=== PATIENT | female | born 1935 | race Caucasian/White ===

== ENCOUNTER 2019-12-04 15:15 | Emergency (ER) | payer MEDICARE, SELFPAY ==
--- NOTE | ~2019-12-04 | XR_ITS ---
EXAMINATION: XR wrist RT min 3V INDICATION: Right wrist pain, initial encounter TECHNIQUE: Four views of the right wrist are obtained. COMPARISON: None available FINDINGS: There is an acute, traumatic, closed, transverse, comminuted fracture of the distal radius. Soft tissue swelling surrounds the fracture. No additional acute osseous findings are evident. 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 IMPRESSION: 1. Comminuted distal radius fracture. Reviewed, dictated and finalized at location A. [employer]
[2019-12-04 15:21] VITALS: BP 152/76; PULSE 70; RESP 20; TEMP 37.6; O2SAT 98
--- NOTE | 2019-12-04 15:48 | ED.UPPEXIN ---
HPI - Extremity Injury (Upper) General Chief Complaint: Extremity Injury, Upper Stated Complaint: R WRIST INJURY Time Seen by Provider: 12/04/19 15:39 Source: patient and RN notes reviewed Mode of arrival: ambulatory Limitations: no limitations History of Present Illness HPI narrative: Patient presents today with an injury to her right wrist. 2 hours prior to arrival she fell onto her wrist. Denies numbness or tingling. Pain slightly increases with range of motion. She has been applying ice. She has taken no medication for symptoms prior to arrival. MD complaint: injury to: right and wrist Related Data Home Medications Medication Instructions Recorded Confirmed levothyroxine 50 mcg tablet 50 mcg PO DAILY 10/15/19 12/04/19 aspirin 81 mg tablet,delayed 81 mg PO DAILY 10/16/19 12/04/19 release carbamazepine 100 mg chewable 100 mg PO .COMPLEX tablet 11/27/19 12/04/19 tablet Allergies Allergy/AdvReac Type Severity Reaction Status Date / Time No Known Allergies Allergy Verified 12/04/19 15:29 Review of Systems Review of Systems: Narrative: CONSTITUTIONAL: Denies body aches, fever, chills, or sweats. EYES: Denies visual changes, redness, or discharge. ENT: Denies rhinorrhea, congestion, sore throat, or otalgia. CARDIOVASCULAR: Denies chest pain, palpitations, or edema. RESPIRATORY: Denies cough or dyspnea. GASTROINTESTINAL: Denies abdominal pain, nausea, vomiting, or diarrhea. GENITOURINARY: Denies dysuria or hematuria. SKIN: Denies rash, itching, or wounds. MUSCULOSKELETAL: Denies back pain, or myalgia.+ Right wrist injury NEUROLOGIC: Denies headache, numbness, tingling, or weakness. PSYCH: Denies depression or anxiety. [facility] Past Medical History Medical History HTN (hypertension) Social History Social History Smoking status: Never smoker Second hand tobacco smoke exposure: No Alcohol intake: never Substance use: never Substance use type: does not use Gender identity (if verbalized by the patient): Female Comments At time of signature, I have reviewed and agree with nursing past medical, surgical, social and family history unless otherwise noted. Please see nursing chart for further information. There is no relevant family history pertinent to the presenting complaint Exam Narrative: Exam Narrative: GENERAL: Well-appearing, well-nourished, and in no acute distress. HEAD: Normocephalic, atraumatic. EYES: EOMI. No redness or drainage. Conjunctivae normal. ENT: Mucous membranes pink and moist. NECK: Normal AROM. CHEST: No respiratory distress. EXTREMITIES: Right wrist: Tenderness to the distal radius. Ecchymosis and mild edema noted. Full AROM of fingers and wrist. No snuffbox tenderness. Distal sensation intact. Capillary refill normal. Radial pulse normal. SKIN: Warm, dry, no rash. NEURO: No focal deficits. Alert and oriented x3. Gait steady. PSYCH: Normal affect. No signs of depression or anxiety. Course Vital Signs Vital signs: Vital Signs Temperature 99.6 F 12/04/19 15:21 Pulse Rate 70 12/04/19 15:21 Respiratory Rate 20 12/04/19 15:21 Blood Pressure 152/76 H 12/04/19 15:21 Pulse Oximetry 98 12/04/19 15:21 Temperature 99.6 F 12/04/19 15:21 Pulse Rate 70 12/04/19 15:21 Respiratory Rate 20 12/04/19 15:21 Blood Pressure 152/76 H 12/04/19 15:21 Pulse Oximetry 98 12/04/19 15:21 Reviewed. Pt has been instructed to follow up with her PCP regarding her elevated blood pressure today. Procedures Orthopedic Splinting/Casting Injury #1: Splinting/Casting Date: 12/04/19 Splinting/Casting Time: 15:52 Side: right Upper Extremity Injury Location: wrist OCL: volar Pre-Procedure Neuro Vascular Exam: normal Post-Procedure Neuro Vascular Exam: normal Additional Comments: completed by Tim
== END 2019-12-04 16:15 | disposition home or self-care (01) ==
PROVIDERS: Emergency Provider Nurse Practitioner; PCP Family Medicine
DX: S52.501A Unspecified fracture of the lower end of right radius, initial encounter for closed fracture (principal); W19.XXXA Unspecified fall, initial encounter; I10 Essential (primary) hypertension; E03.9 Hypothyroidism, unspecified
CPT/HCPCS: 29125; 73110; 99214; G0463

== ENCOUNTER 2021-11-16 08:08 | Emergency (ER) | payer MEDICARE, SELFPAY ==
[2021-11-16 08:15] VITALS: BP 160/80; PULSE 70; RESP 16; TEMP 36.2; O2SAT 96
--- NOTE | 2021-11-16 08:48 | ED.GENADULT ---
HPI - General Adult General Chief complaint: Unspecified Stated complaint: nerve in face hurting Time Seen by Provider: 11/16/21 08:17 Source: patient Mode of arrival: ambulatory Limitations: no limitations History of Present Illness HPI narrative: Patient is an 86-year-old female complaining of left facial pain, my neurologist told me that I have twisted nerve on the left side of her face started years ago but worse this past few weeks, was prescribed carbamazepine for it. Patient states that she has had the symptom for years and usually sees Dr. Templeton her neurologist, but he is now retired and no one to follow-up with. She denies any facial injury. Patient denies any headache, dizziness, speech or visual disturbance, focal weakness or numbness, unsteady gait, fever or chills. Related Data Home Medications Medication Instructions Recorded Confirmed aspirin 81 mg tablet,delayed 81 mg PO DAILY 10/16/19 08/11/21 release carbamazepine 11/16/21 11/16/21 levothyroxine 11/16/21 losartan 11/16/21 Allergies Allergy/AdvReac Type Severity Reaction Status Date / Time No Known Allergies Allergy Verified 11/16/21 08:24 Review of Systems Review of Systems: All systems reviewed & are unremarkable except as noted in HPI and below Constitutional: Constitutional: Denies body ache(s), Denies chills, Denies excessive sweating, Denies fatigue, Denies fever(s), Denies headache(s), Denies lethargy, Denies malaise, Denies weakness and Denies weight loss Eyes: Eyes: Denies blurry vision, Denies change in vision and Denies loss of vision ENT: Denies dizziness, Denies ear discharge, Denies headache(s), Denies lip swelling, Denies epistaxis, Denies nasal congestion, Denies neck pain, Denies throat swelling and Denies tongue swelling Cardiovascular: Cardiovascular: Denies chest pain, Denies chest pain at rest, Denies chest pain with activity, Denies diaphoresis, Denies rapid heart rate, Denies edema, Denies irregular heart rhythm, Denies lightheadedness, Denies palpitations, Denies dyspnea and Denies dyspnea on exertion Respiratory: Respiratory: Denies chest congestion, Denies cough, Denies hemoptysis, Denies dyspnea and Denies dyspnea on exertion Gastrointestinal: Gastrointestinal: Denies abdominal pain, Denies melena, Denies hematochezia, Denies diarrhea, Denies nausea, Denies vomiting and Denies hematemesis Musculoskeletal: Musculoskeletal: Denies abnormal gait, Denies deformity, Denies joint swelling, Denies limited range of motion, Denies neck pain and Denies numbness Neurologic: Denies Abnormal speech present, Denies abnormal gait, Denies confusion, Denies dizziness, Denies headache(s), Denies focal weakness, Denies loss of vision, Denies numbness, Denies Other visual disturbances, Denies Sensory deficit (Neuro) and Denies weakness Psychiatric: Psychiatric: Denies confusion, Denies depression, Denies auditory hallucinations, Denies homicidal ideation and Denies suicidal ideation Endocrine: Endocrine: Denies cold intolerance, Denies excessive sweating, Denies fatigue, Denies heat intolerance and Denies palpitations Hematologic/Lymphatic: Hematologic/Lymphatic: Denies easy bleeding and Denies easy bruising Allergic/Immunologic: Allergic/Immunologic: Denies lip swelling, Denies throat swelling and Denies tongue swelling PMFSH Past Medical History Medical History Carpal tunnel syndrome of right wrist HTN (hypertension) Hypothyroidism Social History Social History Smoking status: Never smoker Second hand tobacco smoke exposure: No Alcohol intake: never Substance use: never Substance use type: does not use Gender identity (if verbalized by the patient): Female Sexual Orientation (if Verbalized by the Patient): Straight or Heterosexual Exam Const: General: cooperative, healthy appearing, comfortable, no a
[2021-11-16] MEDS: BACLOFEN 10 MG TABLET PO (09:50)
[2021-11-16] MEDS: KETOROLAC 30 MG/ML VIAL (*BKC) 15 MG IM (09:50)
== END 2021-11-16 10:02 | disposition home or self-care (01) ==
PROVIDERS: Emergency Provider Emergency Medicine; PCP Family Medicine
DX: G50.0 Trigeminal neuralgia (principal); I10 Essential (primary) hypertension; E03.9 Hypothyroidism, unspecified
CPT/HCPCS: 96372; 99283; A9270; J1885

== ENCOUNTER 2023-10-27 17:20 | Emergency (ER) | payer MEDICARE, SELFPAY ==
--- NOTE | 2023-10-27 17:28 | ED.GENADULT ---
HPI - General Adult General Chief complaint: Skin/Abscess/Foreign Body Stated complaint: Face Numbness Source: patient, RN notes reviewed and old records reviewed Mode of arrival: ambulatory Limitations: no limitations History of Present Illness HPI narrative: 88-year-old female presents to [facility] with complaint of a weird feeling in left cheek, patient states kind of numb. Patient states started last Tuesday after working outside in the yard for 2 days. Patient denies pain patient denies rash patient denies injury. 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 complaint: Cheek numbness Onset (ago): day(s) (-) Related Data Home Medications Medication Instructions Recorded Confirmed aspirin 81 mg tablet,delayed 81 mg PO DAILY 10/16/19 10/27/23 release Allergies Allergy/AdvReac Type Severity Reaction Status Date / Time No Known Allergies Allergy Verified 10/27/23 17:30 Review of Systems Constitutional: Constitutional: Reports no additional constitutional complaints, Denies body ache(s), Denies chills, Denies fatigue, Denies fever(s) and Denies headache(s) Eyes: Eyes: Reports no additional eye complaints and Denies blurry vision ENT: Reports system reviewed and no additional complaints, except as documented, Denies vertigo, Denies dizziness, Denies ear discharge, Denies otalgia, Denies facial pain, Denies headache(s), Denies nasal congestion, Denies nasal discharge, Denies sinus pain, Denies sinus pressure and Denies sore throat Cardiovascular: Cardiovascular: Reports no additional cardiovascular complaints, Denies chest pain, Denies chest pain at rest, Denies rapid heart rate and Denies dyspnea Respiratory: Respiratory: Reports no additional respiratory complaints, Denies chest congestion, Denies cough, Denies pain on inspiration, Denies pain with cough and Denies dyspnea Gastrointestinal: Gastrointestinal: Denies abdominal pain, Denies diarrhea, Denies nausea and Denies vomiting Integumentary/Breasts: Skin/Breast: Denies rash Neurologic: Reports system reviewed and no additional complaints, except as documented, Denies vertigo, Denies dizziness and Denies headache(s) Comments: numbness in left c Endocrine: Endocrine: Denies fatigue PMFSH Past Medical History Medical History Carpal tunnel syndrome of right wrist HTN (hypertension) Hypothyroidism Social History Social History Smoking status: Never smoker Second hand tobacco smoke exposure: No Alcohol intake: never Substance use: never Substance use type: does not use Living arrangements: alone Occupation/Education: retired Gender identity (if verbalized by the patient): Female Sexual Orientation (if Verbalized by the Patient): Straight or Heterosexual Comments At the time of my signature, I reviewed and agree with the nursing past medical, surgical, social, and family history. There is no relevant family history pertinent to the patient complaint. Exam Const: General: cooperative, healthy appearing, no acute distress and well nourished Nutritional Appearance: well nourished Orientation/consciousness: patient oriented x3 Limitations: no limitations HENMT: Head: normal to inspection and normocephalic Ears: external ears normal, TM's normal bilaterally, mastoids normal and Abnormal EAC present Face/Nose/Sinus: normal facial exam Face and sinus: normal facial exam Mouth: Yes Normal oral and palatal mucosa present, Yes oropharynx normal and Yes moist mucous membranes Throat: tonsils normal, uvula midline and no uvular edema Eyes: General: appearance normal, both eyes and all related structures Sclera: sclerae normal Pupils: Equal, round and reactive pupils present Resp: Effort & Inspection: normal respiratory effort, able to
[2023-10-27 17:35] VITALS: BP 163/82; PULSE 74; RESP 16; TEMP 37.1; O2SAT 97
== END 2023-10-27 17:52 | disposition home or self-care (01) ==
PROVIDERS: Emergency Provider Registered Nurse; PCP Family Medicine
DX: R20.0 Anesthesia of skin (principal); I10 Essential (primary) hypertension; E03.9 Hypothyroidism, unspecified; Z79.82 Long term (current) use of aspirin
CPT/HCPCS: 99211; G0463

== ENCOUNTER 2025-08-26 01:54 | Emergency (ER) | payer MEDICARE, SELFPAY ==
[2025-08-26] VITALS (20 sets, daily range): BP systolic 104–154; BP diastolic 48–77; PULSE 73–84; RESP 18; TEMP 36.9; O2SAT 93–95
--- NOTE | ~2025-08-26 | XR_ITS ---
EXAMINATION: XR hand RT min 3V DATE: 08/26/2025 03:15 INDICATION: Right wrist pain and swelling. TECHNIQUE: Posteroanterior, oblique and lateral views of the right hand were obtained. COMPARISON: None. FINDINGS: Diffuse osteopenia. Old healed fracture deformity at the distal right radius with 25 degrees dorsal tilt of the distal articular surface. No acute fracture. Widening of the scapholunate interval with increased scapholunate and lunocapitate angle consistent with scapholunate ligament insufficiency and s econdary dorsal intercalated segment instability (DISI). 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 Additional mild to moderate polyarticular osteoarthritis at the right hand most prominent at the second and third metacarpophalangeal and multiple distal interphalangeal joints. There is soft tissue swelling about the wrist and carpus. No erosions identified. IMPRESSION: 1. Old healed fracture deformity distal right radius. No acute osseous abnormality. 2. 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 3. 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 Reviewed, dictated and finalized at location A. IMPRESSION: 1. Old healed fracture deformity distal right radius. No acute osseous abnormal ity. 2. 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 3. 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
--- NOTE | 2025-08-26 03:14 | ED_ITS ---
HPI - Extremity Problem General Chief complaint: Extremity Problem,Nontraumatic Stated complaint: R hand pain/swelling Time Seen by Provider: 08/26/25 02:26 History of Present Illness HPI Narrative: 89-year-old female presenting to the emergency department with pain and swelling in her right arm. She localizes it to the wrist on the radial aspect. Denies any traumatic injuries. No history of gout. States he has tried some Tylenol at home without any relief. No fever, chills, systemic symptoms. No range of motion restrictions. States it hurts to the touch and is slightly warm. Denies any bug bites or traumatic injuries to her knowledge. Related Data Home Medications ?Medication ?Instructions ?Recorded ?Confirmed ?Last Taken ?Type aspirin 81 mg tablet,delayed 81 mg PO DAILY 10/16/19 0 07/09/25 Unknown History release Allergies Allergy/AdvReac Type Severity Reaction Status Date / Time No Known Allergies Allergy Verified 07/09/25 08:57 Review of Systems Review of Systems: As reviewed above in HPI [facility] Past Medical History Medical History Hypothyroidism Carpal tunnel syndrome of right wrist HTN (hypertension) Social History Social History Smoking status: Never smoker Second hand tobacco smoke exposure: No Alcohol intake: never Substance use: never Substance use type: does not use Living arrangements: alone Occupation/Education: retired Gender identity (if verbalized by the patient): Female Sexual Orientation (if Verbalized by the Patient): Straight or Heterosexual Exam Narrative: GENERAL: [Well-appearing, well-nourished, and in no acute distress.] HEAD: [Normocephalic, atraumatic.] EYES: [PERRLA and EOMI.] ENT: Nares clear, no rhinorrhea or epistaxis. Mucous membranes moist. NECK: Supple. CHEST: Symmetric chest rise, no respiratory distress HEART: 2+ peripheral pulses and warm extremities. ABDOMEN: [Soft, nondistended], [nontender], [No rigidity or guarding] EXTREMITIES: Dorsal aspect of the right wrist localized to the radial head region and proximal wrist has an area of swelling and some redness. Mild warmth but no induration or fluctuance masses. Tender to palpation over that joint line. No tenderness over the carpals or metacarpals. No [id number] restrictions of the thumb or other digits. Able to make an okay sign a thumbs- up sign. Radial and ulnar deviation elicits pain. No streaking erythema. No restricted range of motion of the elbow. No obvious traumatic injuries or skin breakdown. SKIN: Warm, dry, no rash. NEURO: [No focal deficits]. Alert and oriented [x3.] PSYCH: [Normal mood and affect.] Course Vital Signs Vital signs: Vital Signs Temperature 36.9 C 08/26/25 02:05 Pulse Rate 84 08/26/25 02:05 Respiratory Rate 18 08/26/25 02:05 Blood Pressure 154/68 H 08/26/25 02:05 Pulse Oximetry 94 08/26/25 02:05 Temperature 36.9 C 08/26/25 02:05 Pulse Rate 84 08/26/25 02:05 Respiratory Rate 18 08/26/25 02:05 Blood Pressure 130/65 08/26/25 07:00 Pulse Oximetry 93 08/26/25 02:07 MDM - Extremity (Nontraumatic) MDM Narrative Medical decision making narrative: 89-year-old female presenting to the emergency department with pain and swelling in her right arm. She localizes it to the wrist on the radial aspect. Denies any traumatic injuries. No history of gout. States he has tried some Tylenol at home without any relief. No fever, chills, systemic symptoms. No range of motion restrictions. States it hurts to the touch and is slightly warm. Denies any bug bites or traumatic injuries to her knowledge. Dorsal aspect of the right wrist localized to the radial head region and proximal wrist has an area of swelling and some redness. Mild warmth but no induration or fluctuance masses. Tender to palpation over that joint line. No tenderness over the carpals or metacarpals. No [id number] restrictions of the thumb or other digits. Able to make an okay sign a thumbs-up sign. Radial and ulnar deviation elicits pain. No streaking erythema. No restricted range of motion of the elbow. No obvious traumatic injuries or skin breakdown. Patient is afebrile with normal vital signs. Suspect arthropathy such as gout verses rheumatoid/osteoarthritis given her age and risk factors. No previous gout history. Will obtain x-rays to rule out bony abnormalities and treat her with Tylenol and Toradol. No obvious signs of cellulitis or any skin breakdown or lacerations/bleeding. Low suspicion infectious pathology. X-ray showed no traumatic malalignment or obvious process. Patient re-evaluated had significant improvement in her swelling and pain. Reassuring vital signs. No acute abnormalities at this time. Will be sent home with Toradol and Tylenol and given PCP follow-up instructions. Patient comfortable with the plan and safely discharged. Discharge Plan Discharge Clinical Impression: Acute wrist pain Patient Disposition: Home Condition: Stable Instructions: Antibiotic Form Additional Instructions: We will send you home with some inflammation and pain control medications. Appl y ice to the area up to 20 minutes that time. Follow-up with your primary care provider next 3-5 days of possible. Return with any emergent concerns. Patient Language: [place] Prescriptions: New ketorolac 10 mg tablet 10 mg PO Q8H PRN (Reason: pain) 5 Days Qty: 20 0RF Rx Instructions: maximum total duration of 5 days from all oral, intranasal, or parenteral formulations acetaminophen [Tylenol Extra Strength] 500 mg tablet 1,000 mg PO TID PRN (Reason: pain) Qty: 30 0RF No Action aspirin 81 mg tablet,delayed release (DR/EC) 81 mg PO DAILY levothyroxine 50 mcg tablet 50 mcg PO DAILY Qty: 90 2RF losartan 100 mg tablet 100 mg PO DAILY Qty: 90 2RF Paxlovid 300 mg (150 mg x 2)-100 mg tablets,dose pack See Rx Instructions PO .COMPLEX Qty: 30 0RF Rx Instructions: take TWO 150 mg tablets of nirmatrelvir with ONE 100 mg tablet of ritonavir twice daily for 5 days PO Follow-up/Referrals: Samm Granados MD [Primary Care Provider, [facility]] Time of Disposition: 07:30
[2025-08-26] MEDS: KETOROLAC 30 MG/ML VIAL (*BKC) IM (04:17)
[2025-08-26] MEDS: ACETAMINOPHEN 500 MG TABLET 1000 MG PO (04:17)
--- NOTE | 2025-08-26 06:59 | PC.NURSE ---
Notified Dr. Foreman of Hgb of 12.7 and Hct of 36.0 new orders received and followed through, [facility].
== END 2025-08-26 07:43 | disposition home or self-care (01) ==
PROVIDERS: Emergency Provider Student in an Organized Health Care Education/Training Program; PCP Family Medicine
DX: M25.531 Pain in right wrist (principal); E03.9 Hypothyroidism, unspecified; I10 Essential (primary) hypertension
CPT/HCPCS: 73130; 96372; 99283; A9270; J1885